=== PATIENT | female | born 1950 ===

== ENCOUNTER 2018-09-13 09:07 | Outpatient (CLI) | payer MEDICARE | END 2018-09-13 09:08 | disposition home or self-care (01) | LOC: C.MAMMO 09:07 ==

== ENCOUNTER 2018-10-07 14:50 | Observation (INO) | payer MEDICARE ==
[2018-10-07] MEDS ORDERED: Aspirin 325 mg EC Tablets PO STA (15:39)
[2018-10-07 15:49] LABS: BASO % 0.3 % (0.0-2.0); EOS # 0.1 K/uL (0.0-0.7); EOS % 1.6 % (0.0-4.0); HEMOGLOBIN 11.6 g/dL (11.0-16.0); LYMPH # 2.4 K/uL (1.0-4.3); LYMPH % 34.4 % (20.0-40.0); MEAN CELL VOLUME 92.7 fL (81.0-99.0); MEAN CORPUSCULAR HEMOGLOBIN 30.6 pg (27.0-31.0); MONO # 0.5 K/uL (0.0-0.8); MONO % 7.7 % (0.0-10.0); NEUT # 3.9 K/uL (1.8-7.0); RBC 3.78 Mil/uL (3.80-5.20); RED CELL DISTRIBUTION WIDTH 12.9 % (11.5-14.5); WHITE BLOOD COUNT 6.9 K/uL (4.8-10.8)
--- NOTE | 2018-10-07 16:01 | RAD ---
Date of service: 10/07/2018 PROCEDURE: CHEST RADIOGRAPH, 1 VIEW HISTORY: SOB COMPARISON: None available. FINDINGS: LUNGS: Clear. PLEURA: No pneumothorax or pleural fluid seen. CARDIOVASCULAR: No aortic atherosclerotic calcification present. Normal. OSSEOUS STRUCTURES: No significant abnormalities. VISUALIZED UPPER ABDOMEN: Normal. OTHER FINDINGS: None. IMPRESSION: No active disease.
[2018-10-07 16:04] LABS: ALB/GLOB RATIO 1.8 (1.0-2.1); ALBUMIN 4.6 g/dL (3.5-5.0); ALT/SGPT 17 U/L (9-52); AST/SGOT 31 U/L (14-36); BLOOD UREA NITROGEN 22 mg/dL (7-17); CALCIUM 9.4 mg/dl (8.6-10.4); GFR NON-AFRICAN AMERICAN 55
--- NOTE | 2018-10-07 16:04 | C.PDOC ---
History Of Present Illness 68 year old female brought in by family complains of non-radiating chest pressure and discomfort while sitting on the sofa at home today. States she had just finished giving herself a pedicure, but chest discomfort is by t ouching her toes. Notes having a hearty breakfast and lunch. Denies SOB, recent weight gain/loss, cigarette or cocaine use, limited exercise tolerance, and any other associated symptoms. Time Seen by Provider: 10/07/18 15:21 Chief Complaint (Nursing): Dizziness/Lightheaded History Per: Patient History/Exam Limitations: no limitations Onset/Duration Of Symptoms: Hrs Current Symptoms Are (Timing): Still Present Activity At Onset Of Symptoms: Sitting Possible Causative Factor(s): denies: Decreased PO Intake Recent travel outside of the [place]: No Past Medical History Reviewed: Historical Data, Nursing Documentation, Vital Signs Vital Signs: Last Vital Signs Temp 99.2 F 10/07/18 15:03 Pulse 74 10/07/18 15:20 Resp 18 10/07/18 15:03 BP 123/57 L 10/07/18 15:20 Pulse Ox 100 10/07/18 15:03 - Medical History PMH: Hypercholesterolemia - [facility] Procedures ENDO RECTUM POLYPECTOMY (12/11/14) Family History: States: Unknown Family Hx - Social History Hx Tobacco Use: No Hx Alcohol Use: No Hx Substance Use: No - Immunization History Hx Tetanus Toxoid Vaccination: No Hx Influenza Vaccination: Yes Hx Pneumococcal Vaccination: No Review Of Systems Except As Marked, All Systems Reviewed And Found Negative. Constitutional: Negative for: Weight loss (or recent weight gain. ), Other ((-) limited exercise tolerance.) Cardiovascular: Positive for: Other ((+) chest pressure and discomfort.) Respiratory: Negative for: Shortness of Breath Neurological: Negative for: Other ((-) cigarette or cocaine use.) Physical Exam - Physical Exam Appears: Non-toxic, No Acute Distress Skin: Warm, Dry Head: Atraumatic, Normacephalic Eye(s): bilateral: Normal Inspection Oral Mucosa: Moist Neck: Normal ROM, Supple Chest: Symmetrical, No Deformity Cardiovascular: Rhythm Regular, No Murmur Respiratory: Normal Breath Sounds, No Rales, No Rhonchi, No Wheezing Gastrointestinal/Abdominal: Normal Exam, Soft, No Tenderness Extremity: Bilateral: Atraumatic, Normal Color And Temperature, Normal ROM Neurological/Psych: Oriented x3, Normal Speech, Normal Cognition ED Course And Treatment - Laboratory Results Result Diagrams: 10/07/18 15:46 10/07/18 15:46 Lab Interpretation: Normal (trop/bnp/d-dimer neg.) ECG: Interpreted By Me, Viewed By Me ECG Rhythm: Sinus Rhythm ECG Interpretation: Normal Rate From EC O2 Sat by Pulse Oximetry: 100 (RA) Pulse Ox Interpretation: Normal - Radiology CXR: Interpreted by Me CXR Interpretation: Yes: No Acute Disease - Other Rad CXR X-Ray: Viewed By Me, Read By Radiologist Interpretation: FINDINGS: LUNGS: Clear. PLEURA: No pneumothorax or pleural fluid seen. CARDIOVASCULAR: No aortic atherosclerotic calcification present. Normal. OSSEOUS STRUCTURES: No significant abnormalities. VISUALIZED UPPER ABDOMEN: Normal. OTHER FINDINGS: None. IMPRESSION: No active disease. Progress Note: asa/lovenox Reevaluation Time: 17:05 (remains asymptomatic) - Physician Consult Information Outcome Of Conversation: 1700: d/w Dr. Alicia Canada, Medicine Shaper Hand- ok to Tele Obs Medical Decision Making Medical Decision Making: Initial plan: -EKG -Blood sent -CXR -D Dimer -Aspirin -Urinalysis cp with near-syncope while at rest. had just done painting her toe nails but the episode was not temporaly related to reaching for toes or reaching over which might be explained by vaso-vagal. asa/lovenox given DDX: Anxiety/GERD Disposition Doctor Will See Patient In The: Hospital Counseled Patient/Family Regarding: Studies Performed, Diagnosis - Disposition Disposition: HOSPITALIZED Disposition Time: 17:11 Condition: GOOD Forms: [facility] (Slovak) - Clinical Impression Clinical Impression: Near syncope, Chest pain at rest - Scribe Statement The provider has reviewed the documentation as recorded by the Scribe (Raina Blue) Provider Attestation: All medical record entries made by the Scribe were at my direction and personally dictated by me. I have reviewed the chart and agree that the record accurately reflects my personal performance of the history, physical exam, medical decision making, and the department course for this patient. I have also personally directed, reviewed, and agree with the discharge instructions and disposition.
[2018-10-07 16:13] LABS: SQUAMOUS EPITHIAL 1 /hpf (0-5); URINE BACTERIA RARE (<OCC); URINE BILIRUBIN NEGATIVE (NEGATIVE); URINE BLOOD 1+ (NEGATIVE); URINE CLARITY Clear (Clear); URINE COLOR Straw (YELLOW); URINE GLUCOSE (UA) NORMAL (Normal); URINE LEUKOCYTE ESTERASE NEG Leu/uL (Negative); URINE PROTEIN NEGATIVE (NEGATIVE); URINE UROBILINOGEN NORMAL mg/dL (0.2-1.0)
[2018-10-07 16:15] LABS: B-TYPE NATRIURETIC PEPTIDE 158 pg/mL (0-900)
[2018-10-07] MEDS ORDERED: Enoxaparin 40 mg Syringe SC STA (17:02)
--- NOTE | 2018-10-07 18:20 | CP.PCM.HP ---
Past Patient History - Infectious Disease Hx of Infectious Diseases: None - Past Medical History & Family History Past Medical History?: Yes - Past Social History Smoking Status: Never Smoked - CARDIAC Hx Hypercholesterolemia: Yes - PULMONARY Hx Respiratory Disorders: No - NEUROLOGICAL Hx Neurological Disorder: No - HEENT Hx HEENT Problems: No - ENDOCRINE/METABOLIC Hx Endocrine Disorders: No - HEMATOLOGICAL/ONCOLOGICAL Hx Blood Disorders: No - INTEGUMENTARY Hx Dermatological Problems: No - MUSCULOSKELETAL/RHEUMATOLOGICAL Hx Musculoskeletal Disorders: Yes (OSTEOPENIA) - GASTROINTESTINAL Hx Gastrointestinal Disorders: No - GENITOURINARY/GYNECOLOGICAL Hx Genitourinary Disorders: No - PSYCHIATRIC Hx Substance Use: No - SURGICAL HISTORY Hx Surgeries: Yes Hx Breast Biopsy: Yes (RIGHT NEG) - ANESTHESIA Hx Anesthesia: Yes Hx Anesthesia Reactions: No Hx Malignant Hyperthermia: No Meds Allergies/Adverse Reactions: Allergies Allergy/AdvReac Type Severity Reaction Status Date / Time No Known Allergies Allergy Verified 10/07/18 15:10 Results - Vital Signs Recent Vital Signs: Last Vital Signs Temp 98.6 F 10/07/18 17:40 Pulse 66 10/07/18 17:40 Resp 20 10/07/18 17:40 BP 119/64 10/07/18 17:40 Pulse Ox 98 10/07/18 17:40 - Labs Result Diagrams: 10/07/18 15:46 10/07/18 15:46 Labs: Laboratory Results - last 24 hr 10/07/18 10/07/18 10/07/18 15:46 15:46 15:46 WBC 6.9 RBC 3.78 L Hgb 11.6 Hct 35.0 MCV 92.7 MCH 30.6 MCHC 33.0 RDW 12.9 Plt Count 313 MPV 9.0 Neut % (Auto) 56.0 Lymph % (Auto) 34.4 [place] % (Auto) 7.7 Eos % (Auto) 1.6 Baso % (Auto) 0.3 Neut # (Auto) 3.9 Lymph # (Auto) 2.4 [place] # (Auto) 0.5 Eos # (Auto) 0.1 Baso # (Auto) 0.0 D-Dimer, Quantitative < 200 Sodium 137 Potassium 3.9 Chloride 102 Carbon Dioxide 27 Anion Gap 11 BUN 22 H Creatinine 1.0 Est GFR ( Amer) > 60 Est GFR (Non-Af Amer) 55 Random Glucose 105 Calcium 9.4 Total Bilirubin 0.8 AST 31 ALT 17 Alkaline Phosphatase 53 Troponin I < 0.0120 NT-Pro-B Natriuret Pep 158 Total Protein 7.1 Albumin 4.6 Globulin 2.5 Albumin/Globulin Ratio 1.8 Urine Color Urine Clarity Urine pH Ur Specific [place] Urine Protein Urine Glucose (UA) Urine Ketones Urine Blood Urine Nitrate Urine Bilirubin Urine Urobilinogen Ur Leukocyte Esterase Urine WBC (Auto) Urine RBC (Auto) Ur Squamous Epith Cells Urine Bacteria 10/07/18 16:09 WBC RBC Hgb Hct MCV MCH MCHC RDW Plt Count MPV Neut % (Auto) Lymph % (Auto) [place] % (Auto) Eos % (Auto) Baso % (Auto) Neut # (Auto) Lymph # (Auto) [place] # (Auto) Eos # (Auto) Baso # (Auto) D-Dimer, Quantitative Sodium Potassium Chloride Carbon Dioxide Anion Gap BUN Creatinine Est GFR ( Amer) Est GFR (Non-Af Amer) Random Glucose Calcium Total Bilirubin AST ALT Alkaline Phosphatase Troponin I NT-Pro-B Natriuret Pep Total Protein Albumin Globulin Albumin/Globulin Ratio Urine Color Straw Urine Clarity Clear Urine pH 6.0 Ur Specific [place] 1.005 Urine Protein Negative Urine Glucose (UA) Normal Urine Ketones Negative Urine Blood 1+ H Urine Nitrate Negative Urine Bilirubin Negative Urine Urobilinogen Normal Ur Leukocyte Esterase Neg Urine WBC (Auto) 1 Urine RBC (Auto) < 1 Ur Squamous Epith Cells 1 Urine Bacteria Rare
[2018-10-07] MEDS ORDERED: Pneumococcal 23-Valent Vaccine IM ONE (19:49)
[2018-10-08] MEDS: Enoxaparin 40 mg Syringe SC SCH (09:38)
--- NOTE | 2018-10-08 13:07 | CON ---
DATE: 10/08/2018 NEUROLOGY CONSULTATION CHIEF COMPLAINT: Near syncope. HISTORY OF PRESENT ILLNESS: This is a 68-year-old woman with history of hypercholesterolemia, who was brought in for nonradiating chest pain and discomfort while sitting on the sofa at home after she had eaten a very high-carb meal as well as had finished doing her pedicure while bending downwards. She had a very heavy breakfast/lunch prior to onset of intermittent chest pain, felt lightheaded that she was going to pass out and felt generalized weakness. Currently, neuro exam is nonfocal. No muscle weakness or pronator drift seen. Her vital signs are stable. She came in with a low blood pressure of 102/52 which is mildly low for her height. No focal deficit seen on exam. She is on aspirin and Plavix for stroke prevention and Crestor of dyslipidemia. PAST MEDICAL HISTORY: As above. ALLERGIES: NO KNOWN DRUG ALLERGIES. SOCIAL HISTORY: No illicit drug abuse, smoking, or ETOH abuse. REVIEW OF SYSTEMS: A 14-point review of system is negative except for the HPI. FAMILY HISTORY: Noncontributory. MEDICATIONS: Reviewed by nurse, per reconciliation sheet. LABORATORY DATA: Sodium is 137, potassium 3.9, chloride 102, carbon dioxide 27, BUN of 22, creatinine 1, random glucose 55. PHYSICAL EXAMINATION: VITAL SIGNS: Temperature 98.5, pulse rate of 70, blood pressure 130/71, respiratory rate of 20, and oxygen saturation 98% on room air. GENERAL: The patient is sitting up in bed. No acute distress. HEENT: Atraumatic, normocephalic, PERRLA. Extraocular muscles intact. NECK: Supple, no JVD, no adenopathy noted. LUNGS: Clear to auscultation. No adventitious sounds. HEART: S1, S2, normal rate and rhythm. No murmurs, rubs or gallops. ABDOMEN: Soft, nontender, and nondistended. Bowel sounds are present. EXTREMITIES: No clubbing, no cyanosis. Peripheral pulses 2+ felt bilaterally. NEUROLOGIC: The patient is alert, oriented to person, place, month, and year. Speech is fluent without any errors. Cranial nerves II through XII are intact. Motor exam: Moves all extremities equally. Toes are downgoing bilaterally. Sensory exam: Light touch, pinprick, proprioception and vibration are intact. DTRs are 2+ throughout. Coordination: [id number] intact. No dysmetria noted. Gait is deferred for now. IMPRESSION: Near syncope is likely secondary to a vasovagal component after a heavy carb-load meal which also gave her gastroesophageal reflux disease with intermittent burning chest pain. Currently, her neuro exam is nonfocal. She had low systolic and diastolic blood pressures when she came in which could gave her transient cerebral hypoperfusion to the brain causing near syncopal events. PLAN: At this time, she is clinically stable. We will recommend inpatient or outpatient carotid Doppler and can follow up as an outpatient. She is clinically stable from my standpoint. Continue with her aspirin, Plavix, and Crestor for stroke prevention and could be discharged. Lam Thayer MD
--- NOTE | 2018-10-08 15:52 | CP.PCM.CON ---
History of Present Illness - History of Present Illness History of Present Illness: Consultation for evaluation of CP and dizziness HPI: 68-year-old female brought over for evaluation of episode of chest discomfort wh ile she was sitting at the soap at home apparently patient was finishing a pedicure when she noticed some chest discomfort. Some mild associated shortness of breath on initial presentation she was lightheaded and dizzy past history is significant for hyper lipidemia no prior history of smoking ECG does show normal sinus rhythm with no acute ST or T wave changes patient was admitted to observation to rule out ACS initial troponin was less than 0.012 NT proBNP was 158 and a peak electrocardiogram was done which showed normal sinus rhythm with nonspecific ST-T wave changes. Review of Systems - Review of Systems Systems not reviewed;Unavailable: Acuity of Condition - Constitutional Constitutional: As Per HPI - EENT Eyes: As Per HPI Ears: As Per HPI Nose/Mouth/Throat: As Per HPI - Breasts Breasts: As Per HPI - Cardiovascular Cardiovascular: As Per HPI - Respiratory Respiratory: As Per HPI - Gastrointestinal Gastrointestinal: As Per HPI - Genitourinary Genitourinary: As Per HPI - Reproductive: Female Reproductive:Female: As Per HPI - Menstruation Menstruation: As Per HPI - Musculoskeletal Musculoskeletal: As Per HPI - Integumentary Integumentary: As Per HPI - Neurological Neurological: As Per HPI - Psychiatric Psychiatric: As Per HPI - Endocrine Endocrine: As Per HPI - Hematologic/Lymphatic Hematologic: As Per HPI Past Patient History - Infectious Disease Hx of Infectious Diseases: None - Past Medical History & Family History Past Medical History?: Yes - Past Social History Smoking Status: Never Smoked - CARDIAC Hx Hypercholesterolemia: Yes - PULMONARY Hx Respiratory Disorders: No - NEUROLOGICAL Hx Neurological Disorder: No - HEENT Hx HEENT Problems: No - ENDOCRINE/METABOLIC Hx Endocrine Disorders: No - HEMATOLOGICAL/ONCOLOGICAL Hx Blood Disorders: No - INTEGUMENTARY Hx Dermatological Problems: No - MUSCULOSKELETAL/RHEUMATOLOGICAL Hx Musculoskeletal Disorders: Yes (OSTEOPENIA) - GASTROINTESTINAL Hx Gastrointestinal Disorders: No - GENITOURINARY/GYNECOLOGICAL Hx Genitourinary Disorders: No - PSYCHIATRIC Hx Substance Use: No - SURGICAL HISTORY Hx Surgeries: Yes Hx Breast Biopsy: Yes (RIGHT NEG) - ANESTHESIA Hx Anesthesia: Yes Hx Anesthesia Reactions: No Hx Malignant Hyperthermia: No Meds Allergies/Adverse Reactions: Allergies Allergy/AdvReac Type Severity Reaction Status Date / Time No Known Allergies Allergy Verified 10/07/18 15:10 - Medications Medications: Current Medications Aspirin (Aspirin) 325 mg PO DAILY [facility] Last Admin: 10/08/18 09:38 Dose: 325 mg Clopidogrel Bisulfate (Plavix) 75 mg PO DAILY [facility] Last Admin: 10/08/18 09:37 Dose: 75 mg Enoxaparin Sodium (Lovenox) 40 mg 0.75 mg/kg (40 mg) SC DAILY [facility] Last Admin: 10/08/18 09:38 Dose: 40 mg Nitroglycerin (Nitrostat Sl Tab) 0.4 mg SL Q5M PRN PRN Reason: Pain, Mild (1-3) Rosuvastatin Calcium (Crestor) 5 mg PO [facility] Physical Exam - Constitutional Appears: Well - Head Exam Head Exam: ATRAUMATIC, NORMAL INSPECTION, NORMOCEPHALIC - Eye Exam Eye Exam: EOMI, Normal appearance, PERRL Pupil Exam: NORMAL ACCOMODATION, PERRL - ENT Exam ENT Exam: Mucous Membranes Moist, Normal Exam - Neck Exam Neck exam: Positive for: Normal Inspection - Respiratory Exam Respiratory Exam: Clear to Auscultation Bilateral, NORMAL BREATHING PATTERN - Cardiovascular Exam Cardiovascular Exam: REGULAR RHYTHM - GI/Abdominal Exam GI & Abdominal Exam: Normal Bowel Sounds, Soft. absent: Tenderness - Extremities Exam Extremities exam: Positive for: normal inspection - Back Exam Back exam: NORMAL INSPECTION - Neurological Exam Neurological exam: Alert, CN II-XII Intact, Normal Gait, Oriented x3, Reflexes Normal - Psychiatric Exam Psychiatric exam: Normal Affect, Normal Mood - Skin Skin Exam: Dry, Intact, Normal Color, Warm Results - Vital Signs Recent Vital Signs: Last Vital Signs Temp 97.8 F 10/08/18 15:00 Pulse 69 10/08/18 15:00 Resp 20 10/08/18 15:00 BP 125/65 10/08/18 15:00 Pulse Ox 97 10/08/18 15:00 - Labs Result Diagrams: 10/07/18 15:46 10/07/18 15:46 Labs: Laboratory Results - last 24 hr 10/07/18 10/07/18 10/07/18 15:09 15:46 15:46 WBC 6.9 RBC 3.78 L Hgb 11.6 Hct 35.0 MCV 92.7 MCH 30.6 MCHC 33.0 RDW 12.9 Plt Count 313 MPV 9.0 Neut % (Auto) 56.0 Lymph % (Auto) 34.4 [place] % (Auto) 7.7 Eos % (Auto) 1.6 Baso % (Auto) 0.3 Neut # (Auto) 3.9 Lymph # (Auto) 2.4 [place] # (Auto) 0.5 Eos # (Auto) 0.1 Baso # (Auto) 0.0 D-Dimer, Quantitative < 200 Sodium Potassium Chloride Carbon Dioxide Anion Gap BUN Creatinine Est GFR ( Amer) Est GFR (Non-Af Amer) POC Glucose (mg/dL) 115 H Random Glucose Hemoglobin A1c Calcium Total Bilirubin AST ALT Alkaline Phosphatase Troponin I NT-Pro-B Natriuret Pep Total Protein Albumin Globulin Albumin/Globulin Ratio TSH 3rd Generation Urine Color Urine Clarity Urine pH Ur Specific [place] Urine Protein Urine Glucose (UA) Urine Ketones Urine Blood Urine Nitrate Urine Bilirubin Urine Urobilinogen Ur Leukocyte Esterase Urine WBC (Auto) Urine RBC (Auto) Ur Squamous Epith Cells Urine Bacteria 10/07/18 10/07/18 10/08/18 15:46 16:09 08:27 WBC RBC Hgb Hct MCV MCH MCHC RDW Plt Count MPV Neut % (Auto) Lymph % (Auto) [place] % (Auto) Eos % (Auto) Baso % (Auto) Neut # (Auto) Lymph # (Auto) [place] # (Auto) Eos # (Auto) Baso # (Auto) D-Dimer, Quantitative Sodium 137 Potassium 3.9 Chloride 102 Carbon Dioxide 27 Anion Gap 11 BUN 22 H Creatinine 1.0 Est GFR ( Amer) > 60 Est GFR (Non-Af Amer) 55 POC Glucose (mg/dL) Random Glucose 105 Hemoglobin A1c 6.1 Calcium 9.4 Total Bilirubin 0.8 AST 31 ALT 17 Alkaline Phosphatase 53 Troponin I < 0.0120 NT-Pro-B Natriuret Pep 158 Total Protein 7.1 Albumin 4.6 Globulin 2.5 Albumin/Globulin Ratio 1.8 TSH 3rd Generation Urine Color Straw Urine Clarity Clear Urine pH 6.0 Ur Specific [place] 1.005 Urine Protein Negative Urine Glucose (UA) Normal Urine Ketones Negative Urine Blood 1+ H Urine Nitrate Negative Urine Bilirubin Negative Urine Urobilinogen Normal Ur Leukocyte Esterase Neg Urine WBC (Auto) 1 Urine RBC (Auto) < 1 Ur Squamous Epith Cells 1 Urine Bacteria Rare 10/08/18 08:27 WBC RBC Hgb Hct MCV MCH MCHC RDW Plt Count MPV Neut % (Auto) Lymph % (Auto) [place] % (Auto) Eos % (Auto) Baso % (Auto) Neut # (Auto) Lymph # (Auto) [place] # (Auto) Eos # (Auto) Baso # (Auto) D-Dimer, Quantitative Sodium Potassium Chloride Carbon Dioxide Anion Gap BUN Creatinine Est GFR ( Amer) Est GFR (Non-Af Amer) POC Glucose (mg/dL) Random Glucose Hemoglobin A1c Calcium Total Bilirubin AST ALT Alkaline Phosphatase Troponin I NT-Pro-B Natriuret Pep Total Protein Albumin Globulin Albumin/Globulin Ratio TSH 3rd Generation 3.95 Urine Color Urine Clarity Urine pH Ur Specific [place] Urine Protein Urine Glucose (UA) Urine Ketones Urine Blood Urine Nitrate Urine Bilirubin Urine Urobilinogen Ur Leukocyte Esterase Urine WBC (Auto) Urine RBC (Auto) Ur Squamous Epith Cells Urine Bacteria Assessment & Plan (1) Chest pain at rest Assessment and Plan: Echo stress test in am telemetry Status: Acute (2) Near syncope Assessment and Plan: orthostatics Status: Acute (3) Generalized weakness Status: Acute
--- NOTE | 2018-10-08 19:22 | CP.PCM.PN ---
Subjective - Date & Time of Evaluation Date of Evaluation: 10/08/18 Time of Evaluation: 11:30 - Subjective Subjective: clinically same Objective - Vital Signs/Intake and Output Vital Signs (last 24 hours): Temp Pulse Resp BP Pulse Ox 97.8 F 68 20 125/65 99 10/08/18 15:00 10/08/18 18:21 10/08/18 15:00 10/08/18 15:00 10/08/18 18:21 Intake and Output: 10/08/18 10/09/18 18:59 06:59 Intake Total 500 Balance 500 - Medications Medications: Current Medications Aspirin (Aspirin) 325 mg PO DAILY [facility] Last Admin: 10/08/18 09:38 Dose: 325 mg Clopidogrel Bisulfate (Plavix) 75 mg PO DAILY [facility] Last Admin: 10/08/18 09:37 Dose: 75 mg Enoxaparin Sodium (Lovenox) 40 mg 0.75 mg/kg (40 mg) SC DAILY [facility] Last Admin: 10/08/18 09:38 Dose: 40 mg Nitroglycerin (Nitrostat Sl Tab) 0.4 mg SL Q5M PRN PRN Reason: Pain, Mild (1-3) Rosuvastatin Calcium (Crestor) 5 mg PO HS [facility] - Labs Labs: 10/07/18 15:46 10/07/18 15:46 - Constitutional Appears: Well - Head Exam Head Exam: ATRAUMATIC, NORMAL INSPECTION, NORMOCEPHALIC - Eye Exam Eye Exam: EOMI, Normal appearance, PERRL Pupil Exam: NORMAL ACCOMODATION, PERRL - ENT Exam ENT Exam: Mucous Membranes Moist, Normal Exam - Neck Exam Neck Exam: Full ROM, Normal Inspection. absent: Lymphadenopathy - Respiratory Exam Respiratory Exam: Decreased Breath Sounds - Cardiovascular Exam Cardiovascular Exam: REGULAR RHYTHM, +S1, +S2 - GI/Abdominal Exam GI & Abdominal Exam: Soft, Diminished Bowel Sounds - Rectal Exam Rectal Exam: Deferred
[2018-10-09] MEDS: Enoxaparin 40 mg Syringe SC SCH (10:41)
[2018-10-09 12:00] LABS: BASO % 0.3 % (0.0-2.0); EOS # 0.1 K/uL (0.0-0.7); EOS % 0.7 % (0.0-4.0); HEMOGLOBIN 12.9 g/dL (11.0-16.0); LYMPH # 1.7 K/uL (1.0-4.3); LYMPH % 23.3 % (20.0-40.0); MEAN CORPUSCULAR HEMOGLOBIN 30.8 pg (27.0-31.0); MEAN CORPUSCULAR HGB CONC 33.1 g/dL (33.0-37.0); MEAN PLATELET VOLUME 8.8 fL (7.2-11.7); MONO # 0.4 K/uL (0.0-0.8); NEUT # 5.1 K/uL (1.8-7.0); NEUT % 69.7 % (50.0-75.0); RBC 4.18 Mil/uL (3.80-5.20); RED CELL DISTRIBUTION WIDTH 12.6 % (11.5-14.5); WHITE BLOOD COUNT 7.3 K/uL (4.8-10.8)
[2018-10-09 12:18] LABS: ALB/GLOB RATIO 1.7 (1.0-2.1); ALT/SGPT 8 U/L (9-52); AST/SGOT 39 U/L (14-36); BLOOD UREA NITROGEN 19 mg/dL (7-17); CALCIUM 9.7 mg/dl (8.6-10.4); GFR NON-AFRICAN AMERICAN > 60
--- NOTE | 2018-10-09 13:19 | VASCLAB ---
Date of service: 10/09/2018 PROCEDURE: Carotid Duplex Exam. HISTORY: syncope COMPARISON: None available. TECHNIQUE: Grayscale and duplex Doppler evaluation of the cervical carotid and vertebral arteries were performed. The common carotid, carotid bifurcations and cervical Internal Carotid Artery (ICA) and proximal External Carotid Artery (ECA) were evaluated. The vertebral arteries were evaluated for gross patency and flow direction. Report prepared by Ehsan Alcaraz, BS, RVT FINDINGS: RIGHT CAROTID ARTERIES: 1. Common Carotid Artery: No significant focal plaque formation of the right common carotid artery. Maximum Peak Systolic velocity: 68 cm/sec: End-diastolic velocity 19 cm/sec. 2. Carotid Bifurcation: plaque formation. Maximum Peak Systolic velocity: 49 cm/sec: End-diastolic velocity 12 cm/sec. 3. Internal Carotid Artery: Plaque description: 3.1. Proximal Segment: Peak systolic velocity 69 cm/sec: End-diastolic velocity 26 cm/sec - % stenosis 0-15% 3.2. Middle Segment: Peak systolic velocity 111 cm/sec: End-diastolic velocity 34 cm/sec - % stenosis 0-15% 3.3. Distal Segment: Peak systolic velocity 74 cm/sec: End-diastolic velocity 28 cm/sec - % stenosis 0-15% 4. External Carotid Artery: No significant focal plaque formation. Peak systolic velocity 52 cm/sec 5. ICA/CCA Ratio: 1.6 LEFT CAROTID ARTERIES: 1. Common Carotid Artery: No significant focal plaque formation of the left common carotid artery. Maximum Peak Systolic velocity: 58 cm/sec: End-diastolic velocity 19 cm/sec. 2. Carotid Bifurcation: plaque formation. Maximum Peak Systolic velocity: 64 cm/sec: End-diastolic velocity 19 cm/sec. 3. Internal Carotid Artery: Plaque description: 3.1. Proximal Segment: Peak systolic velocity 68 cm/sec: End-diastolic velocity 21 cm/sec - % stenosis 0-15% 3.2. Middle Segment: Peak systolic velocity 98 cm/sec: End-diastolic velocity 32 cm/sec - % stenosis 0-15% 3.3. Distal Segment: Peak systolic velocity 67 cm/sec: End-diastolic velocity 25 cm/sec - % stenosis 0-15% 4. External Carotid Artery: No significant focal plaque formation. Peak systolic velocity 92 cm/sec 5. ICA/CCA Ratio: 1.7 VERTEBRAL ARTERIES: 1. Right Vertebral Artery: The right vertebral artery flow direction is antegrade. 2. Left Vertebral Artery: The left vertebral artery flow direction is antegrade. OTHER FINDINGS: 1. Right Brachial Blood pressure: 138 mmHg. 2. Left Brachial Blood pressure: 132 mmHg. 3. No atherosclerotic calcification present IMPRESSION: RIGHT: Duplex scan does not suggest hemodynamically significant stenosis of the right extracranial carotid arteries. LEFT: Duplex scan does not suggest hemodynamically significant stenosis of the left extracranial carotid arteries.
--- NOTE | 2018-10-09 18:08 | CARD ---
APPROVED REPORT Date of service: 10/09/2018 EXAM: Two-dimensional and M-mode echocardiogram with Doppler and color Doppler. Other Information Quality : GoodRhythm : INDICATION Chest Pain Syncope RISK FACTORS Hyperlipidemia 2D DIMENSIONS IVSd0.7 (0.7-1.1cm)LVDd3.7 (3.9-5.9cm) PWd0.7 (0.7-1.1cm)LA Ohezfg02 (18-58mL) LVDs2.2 (2.5-4.0cm)FS (%) 41.3 % LVEF (%)73.0 (>50%)LVEF (Duran's)67.01 % M-Mode DIMENSIONS Left Atrium (MM)2.80 (2.5-4.0cm)IVSd0.76 (0.7-1.1cm) Aortic Root2.96 (2.2-3.7cm)LVDd3.59 (4.0-5.6cm) Aortic Cusp Exc.1.99 (1.5-2.0cm)PWd0.76 (0.7-1.1cm) FS (%) 30 %LVDs2.50 (2.0-3.8cm) LVEF (%)65 (>50%) Mitral Valve MV E Wtjgwwie61.6cm/sMV A Tvadsgcb72.8cm/sE/A ratio0.9 TDI Lateral E' Peak V9.77cm/sMedial E' Peak V6.16cm/sE/Lateral E'7.0 E/Medial E'11.1 Tricuspid Valve TR Peak [id number]/sTR Peak Gr.[id number] LEFT VENTRICLE The left ventricle is normal size. There is normal left ventricular wall thickness. The left ventricular function is normal. The left ventricular ejection fraction is within the normal range. No regional wall motion abnormalities noted. The left ventricular diastolic function is normal for age. RIGHT VENTRICLE The right ventricle is normal size. There is normal right ventricular wall thickness. The right ventricular systolic function is normal. ATRIA The left atrium size is normal. The right atrium size is normal. The interatrial septum is intact with no evidence for an atrial septal defect. AORTIC VALVE The aortic valve is normal in structure and function. No aortic regurgitation is present. There is no aortic valvular stenosis. MITRAL VALVE The mitral valve is normal in structure and function. There is no evidence of mitral valve prolapse. There is no mitral valve regurgitation noted. TRICUSPID VALVE The tricuspid valve is normal in structure and function. There is no tricuspid valve regurgitation noted. PULMONIC VALVE The pulmonary valve is normal in structure and function. GREAT VESSELS The aortic root is normal in size. The IVC is normal in size and collapses >50% with inspiration. PERICARDIAL EFFUSION The pericardium appears normal. <Conclusion> Normal bi-ventricular function. No valvular abnormality. No pericardial effusion.
--- NOTE | 2018-10-09 19:10 | CP.PCM.PN ---
Subjective - Date & Time of Evaluation Date of Evaluation: 10/09/18 Time of Evaluation: 19:06 - Subjective Subjective: Solitario Thompson, PGY-1, Cardiology Progress Note for Dr. Lutz Patient seen and evaluated at bedside. Patient had no acute overnight events. Patient initially had burning chest pain for a short time of less than 10 minutes on presentation which has now resolved. Patient denies chest pain, shortness of breath, nausea, diaphoresis, left arm pain, dizziness, and jaw pain. Objective - Vital Signs/Intake and Output Vital Signs (last 24 hours): Temp Pulse Resp BP Pulse Ox 98 F 83 18 129/56 L 100 10/09/18 15:48 10/09/18 17:48 10/09/18 15:48 10/09/18 15:48 10/09/18 15:48 Intake and Output: 10/09/18 10/10/18 18:59 06:59 Intake Total 380 Balance 380 - Medications Medications: Current Medications Aspirin (Aspirin) 325 mg PO DAILY [facility] Last Admin: 10/09/18 10:41 Dose: 325 mg Clopidogrel Bisulfate (Plavix) 75 mg PO DAILY [facility] Last Admin: 10/09/18 10:41 Dose: 75 mg Enoxaparin Sodium (Lovenox) 40 mg 0.75 mg/kg (40 mg) SC DAILY [facility] Last Admin: 10/09/18 10:41 Dose: 40 mg Nitroglycerin (Nitrostat Sl Tab) 0.4 mg SL Q5M PRN PRN Reason: Pain, Mild (1-3) Rosuvastatin Calcium (Crestor) 5 mg PO HS [facility] Last Admin: 10/08/18 21:13 Dose: 5 mg - Labs Labs: 10/09/18 11:51 10/09/18 11:51 - Constitutional Appears: Well, Non-toxic, No Acute Distress - Head Exam Head Exam: ATRAUMATIC, NORMAL INSPECTION, NORMOCEPHALIC - Eye Exam Eye Exam: EOMI, PERRL - ENT Exam ENT Exam: Mucous Membranes Moist - Neck Exam Neck Exam: Full ROM - Respiratory Exam Respiratory Exam: Clear to Ausculation Bilateral, NORMAL BREATHING PATTERN - Cardiovascular Exam Cardiovascular Exam: REGULAR RHYTHM, RRR - GI/Abdominal Exam GI & Abdominal Exam: Soft, Normal Bowel Sounds. absent: Tenderness - Extremities Exam Extremities Exam: Full ROM - Neurological Exam Neurological Exam: Alert, Awake, CN II-XII Intact, Oriented x3 - Skin Skin Exam: Dry, Intact, Normal Color Assessment and Plan - Assessment and Plan (Free Text) Assessment: Hyperlipidemia Chest Pain with ACS rule out Plan: Hyperlipidemia Chest Pain with ACS rule out Echocardiogram: LVEF of 73% Carotid Dupplex: no significant stenosis of bilateral carotid arteries Stress test scheduled for tomorrow Medications: aspirin plavix nitroglycerin rosuvastatin
--- NOTE | 2018-10-09 20:28 | CP.PCM.PN ---
Subjective - Date & Time of Evaluation Date of Evaluation: 10/09/18 Time of Evaluation: 11:45 - Subjective Subjective: clinically same Objective - Vital Signs/Intake and Output Vital Signs (last 24 hours): Temp Pulse Resp BP Pulse Ox 98 F 83 18 129/56 L 99 10/09/18 15:48 10/09/18 17:48 10/09/18 15:48 10/09/18 15:48 10/09/18 19:56 Intake and Output: 10/09/18 10/10/18 18:59 06:59 Intake Total 380 Balance 380 - Medications Medications: Current Medications Aspirin (Aspirin) 325 mg PO DAILY [facility] Last Admin: 10/09/18 10:41 Dose: 325 mg Clopidogrel Bisulfate (Plavix) 75 mg PO DAILY [facility] Last Admin: 10/09/18 10:41 Dose: 75 mg Enoxaparin Sodium (Lovenox) 40 mg 0.75 mg/kg (40 mg) SC DAILY [facility] Last Admin: 10/09/18 10:41 Dose: 40 mg Nitroglycerin (Nitrostat Sl Tab) 0.4 mg SL Q5M PRN PRN Reason: Pain, Mild (1-3) Rosuvastatin Calcium (Crestor) 5 mg PO HS [facility] Last Admin: 10/08/18 21:13 Dose: 5 mg - Labs Labs: 10/09/18 11:51 10/09/18 11:51 - Constitutional Appears: Well - Head Exam Head Exam: ATRAUMATIC, NORMAL INSPECTION, NORMOCEPHALIC - Eye Exam Eye Exam: EOMI, Normal appearance, PERRL Pupil Exam: NORMAL ACCOMODATION, PERRL - ENT Exam ENT Exam: Mucous Membranes Moist, Normal Exam - Neck Exam Neck Exam: Full ROM, Normal Inspection. absent: Lymphadenopathy - Respiratory Exam Respiratory Exam: Decreased Breath Sounds - Cardiovascular Exam Cardiovascular Exam: REGULAR RHYTHM, +S1, +S2 - GI/Abdominal Exam GI & Abdominal Exam: Soft, Diminished Bowel Sounds - Rectal Exam Rectal Exam: Deferred
[2018-10-10] MEDS: Enoxaparin 40 mg Syringe SC SCH ×2 (11:00→13:54)
--- NOTE | 2018-10-10 15:08 | CP.PCM.PN ---
Subjective - Date & Time of Evaluation Date of Evaluation: 10/10/18 Time of Evaluation: 11:15 - Subjective Subjective: clinically same Objective - Vital Signs/Intake and Output Vital Signs (last 24 hours): Temp Pulse Resp BP Pulse Ox 97.3 F L 72 20 107/66 99 10/10/18 07:00 10/10/18 08:16 10/10/18 07:00 10/10/18 07:00 10/10/18 07:00 Intake and Output: 10/10/18 10/10/18 06:59 18:59 Intake Total 480 Balance 480 - Medications Medications: Current Medications Aspirin (Aspirin) 325 mg PO DAILY [facility] Last Admin: 10/10/18 13:54 Dose: 325 mg Clopidogrel Bisulfate (Plavix) 75 mg PO DAILY [facility] Last Admin: 10/10/18 13:54 Dose: 75 mg Enoxaparin Sodium (Lovenox) 40 mg 0.75 mg/kg (40 mg) SC DAILY [facility] Last Admin: 10/10/18 13:54 Dose: 40 mg Nitroglycerin (Nitrostat Sl Tab) 0.4 mg SL Q5M PRN PRN Reason: Pain, Mild (1-3) Rosuvastatin Calcium (Crestor) 5 mg PO HS [facility] Last Admin: 10/09/18 21:27 Dose: 5 mg - Labs Labs: 10/09/18 11:51 10/09/18 11:51
[2018-10-10 16:36] VITALS: BP 107/65; RESP 18; TEMP 98.1; O2SAT 95
--- NOTE | 2018-10-10 16:39 | CP.PCM.PN ---
Subjective - Date & Time of Evaluation Date of Evaluation: 10/10/18 Time of Evaluation: 16:37 - Subjective Subjective: Solitario Thompson, PGY-1, Cardiology Progress Note for Dr. Lutz Patient seen and evaluated at exercise stress test this morning. Patient tolerated stress test very well with no signs of chest pain, severe shortness of breath, left arm pain, or jaw pain and was able to tolerate moderate intensity of treadmill stress test for around 10 minutes. Patient denied any chest pain, shortness of breath, nausea, diaphoresis, left arm pain, jaw pain, dizziness prior to or after exercise stress test. Objective - Vital Signs/Intake and Output Vital Signs (last 24 hours): Temp Pulse Resp BP Pulse Ox 97.3 F L 72 20 107/66 99 10/10/18 07:00 10/10/18 08:16 10/10/18 07:00 10/10/18 07:00 10/10/18 07:00 Intake and Output: 10/10/18 10/10/18 06:59 18:59 Intake Total 480 150 Balance 480 150 - Medications Medications: Current Medications Aspirin (Aspirin) 325 mg PO DAILY [facility] Last Admin: 10/10/18 13:54 Dose: 325 mg Clopidogrel Bisulfate (Plavix) 75 mg PO DAILY [facility] Last Admin: 10/10/18 13:54 Dose: 75 mg Enoxaparin Sodium (Lovenox) 40 mg 0.75 mg/kg (40 mg) SC DAILY [facility] Last Admin: 10/10/18 13:54 Dose: 40 mg Nitroglycerin (Nitrostat Sl Tab) 0.4 mg SL Q5M PRN PRN Reason: Pain, Mild (1-3) Rosuvastatin Calcium (Crestor) 5 mg PO [facility] Last Admin: 10/09/18 21:27 Dose: 5 mg - Labs Labs: 10/09/18 11:51 10/09/18 11:51 - Constitutional Appears: Well, Non-toxic, No Acute Distress - Head Exam Head Exam: ATRAUMATIC, NORMAL INSPECTION, NORMOCEPHALIC - Eye Exam Eye Exam: EOMI, PERRL - ENT Exam ENT Exam: Mucous Membranes Moist - Neck Exam Neck Exam: Full ROM - Respiratory Exam Respiratory Exam: Clear to Ausculation Bilateral, NORMAL BREATHING PATTERN - Cardiovascular Exam Cardiovascular Exam: REGULAR RHYTHM, RRR - GI/Abdominal Exam GI & Abdominal Exam: Soft, Normal Bowel Sounds. absent: Tenderness - Extremities Exam Extremities Exam: Full ROM - Neurological Exam Neurological Exam: Alert, Awake, CN II-XII Intact, Oriented x3 - Skin Skin Exam: Dry, Intact, Normal Color Assessment and Plan - Assessment and Plan (Free Text) Assessment: Hyperlipidemia Chest Pain with ACS rule out Plan: Hyperlipidemia Chest Pain with ACS rule out Echocardiogram: LVEF of 73% with normal biventricular function Carotid Dupplex: no significant stenosis of bilateral carotid arteries Stress test: patient tolerated well with appropriate upward sloping of ST waves. No ST flattening or downward sloping Chest pain unlikely cardiac in nature Medications: aspirin plavix nitroglycerin rosuvastatin
[2018-10-10 16:41] VITALS: PULSE 91
--- NOTE | 2018-10-10 21:03 | CARD ---
APPROVED REPORT Date of service: 10/07/2018 EKG Measurement Heart [id number] <Conclusion> Normal sinus rhythm Normal ECG
== END 2018-10-10 20:05 | disposition home or self-care (01) ==
LOC: C.ER 14:50 → C.9E 17:18 → C.6T 17:19
PROVIDERS: ADMIT Internal Medicine Nephrology; ATTEND Internal Medicine Nephrology
DX: R07.89 Other chest pain (principal); R55 Syncope and collapse; K21.9 Gastro-esophageal reflux disease without esophagitis; F41.9 Anxiety disorder, unspecified; R53.1 Weakness; E78.5 Hyperlipidemia, unspecified; E78.00 Pure hypercholesterolemia, unspecified; M85.80 Other specified disorders of bone density and structure, unspecified site
CPT/HCPCS: 36415; 71045; 80053; 81001; 82948; 83036; 83880; 84443; 84484; 85025; 85378; 93005; 93306; 93880; 96372; 99285; G0378; J1650